=== PATIENT | female | born 1965 ===

== ENCOUNTER 2023-09-27 14:14 | Outpatient (CLI) | payer BC, SELFPAY ==
--- NOTE | ~2023-09-27 | CT_ITS ---
EXAMINATION: CT lumbar spine wo con DATE: 09/27/2023 14:38 INDICATION: Compression fracture of lumbar spine. Low back pain. TECHNIQUE: Computed tomography (CT) of the lumbar spine was performed without intravenous contrast. A utomated exposure control and iterative reconstruction technique were employed. The dose-length produ ct was 713.82 mGy-cm. COMPARISON: None FINDINGS: There is 16 degrees levoscoliosis of lumbar spine. There is 27 degrees dextroscoliosis of t horacic spine. There is a yanet from the thoracic spine to L2. There is 5 mm anterolisthesis of L4 on L 5. There is widespread sclerosis of the bones. There is a lytic lesion involving L5 vertebral body an d the posterior elements. There is a pathologic burst fracture of L5 with 3/5 loss of height centrall y. There is moderately decreased disc height at L4-L5 and L5-S1. There is ankylosis of the facet join ts from the thoracic spine to L2. The following disc levels are specifically discussed: L1-L2: The disc does not extend beyond the endplate margin. There is mild bilateral facet joint hyper trophy. There is no neural foraminal stenosis. There is no central canal stenosis. L2-L3: The disc is bulging. There is moderate right and severe left facet joint osteoarthritis. There is moderate right and mild left neural foraminal stenosis. There is mild central canal stenosis. L3-L4: The disc is bulging. There is severe bilateral facet joint osteoarthritis. There is mild bilat eral neural foraminal stenosis. There is mild central canal stenosis. L4-L5: The disc is bulging. There is severe bilateral facet joint osteoarthritis. There is moderate b ilateral neural foraminal stenosis. There is mild central canal stenosis. L5-S1: The disc is bulging. There is severe bilateral facet joint osteoarthritis. There is mild bilat eral neural foraminal stenosis. There is mild central canal stenosis. IMPRESSION: 1. Widespread bone disease with pathologic L5 burst fracture, consistent with metastatic disease. 2. Moderate lumbar spondylosis. 3. Scoliosis. Spinal yanet from the thoracic spine to L2. Reviewed, dictated and finalized at location A. IMPRESSION: 1. Widespread bone disease with pathologic L5 burst fracture, consistent with m etastatic disease. 2. Moderate lumbar spondylosis. 3. Scoliosis. Spinal yanet from the thoracic spine to L2.
== END 2023-09-27 14:15 ==
PROVIDERS: PCP Internal Medicine; Visit Provider Nurse Practitioner Family
DX: S32.051A Stable burst fracture of fifth lumbar vertebra, initial encounter for closed fracture (principal); M43.06 Spondylolysis, lumbar region; M41.86 Other forms of scoliosis, lumbar region; M89.9 Disorder of bone, unspecified; X58.XXXA Exposure to other specified factors, initial encounter
CPT/HCPCS: 72131